=== PATIENT | male | born 1995 | race Two or more races ===

== ENCOUNTER 2023-10-09 06:12 | Outpatient (RCR) | payer OTHER, SELFPAY | END 2023-10-12 07:53 | disposition home or self-care (01) | LOC: RPT 06:12 | PROVIDERS: ATTENDING PHYSICIAN Nurse Practitioner | DX: S86.012D Strain of left Achilles tendon, subsequent encounter (principal); Z73.6 Limitation of activities due to disability; R26.2 Difficulty in walking, not elsewhere classified | CPT/HCPCS: 97110; 97162 ==